=== PATIENT | female | born 1985 | race Caucasian/White ===

== ENCOUNTER 2019-12-20 17:17 | Emergency (ER) | payer OTHER ==
--- NOTE | 2019-12-20 18:20 | ER Document Report ---
ED Medical Screen (RME) - General Chief Complaint: Leg Swelling Stated Complaint: LEG SWELLING Time Seen by Provider: 12/20/19 18:07 Primary Care Provider: TELLO RADFORD MD [Primary Care Provider] - Follow up as needed Mode of Arrival: Ambulatory Information source: Patient Notes: 34-year-old female presents to ED with swelling to the left leg. There is a large bulge to the medial aspect of the left lower leg. She states she went to urgent care and they sent her to the ED for Doppler and an ultrasound. I have taken her to the ultrasound. We will get a Doppler before discharge her. She states she does not have any past medical history except for an ovarian cyst. When she went to get the ovarian cyst removed they ended up doing a salpingo- oophorectomy. Patient is alert oriented respirations regular nonlabored speaking in full sentences. I have greeted and performed a rapid initial assessment of this patient. A comprehensive ED assessment and evaluation of the patient, analysis of test results and completion of medical decision making process will be conducted by an additional ED providers. TRAVEL OUTSIDE OF THE [place] IN LAST 30 DAYS: No - HPI Onset: Other Onset/Duration: Persistent - 2 months Quality of pain: Achy - 81 walking, Other - Tight Severity: Mild Associated Symptoms: Leg swelling - bulge to the medial aspect of the lower leg, Other - Left leg pain with a Exacerbated by: Walking Relieved by: Denies Similar symptoms previously: Yes Recently seen / treated by doctor: Yes - Related Data Smoking: Non-smoker Frequency of alcohol use: None Drug Abuse: None Allergies/Adverse Reactions: No Known Allergies Allergy (Unverified 08/13/10 22:23) Past Medical History - General Information source: Patient - Social History Cigarette use (# per day): No Chew tobacco use (# tins/day): No Frequency of alcohol use: None Drug Abuse: None Lives with: Family Family history: Reviewed & Not Pertinent - Past Medical History Cardiac Medical History: Reports: None Pulmonary Medical History: Reports: None Neurological Medical History: Reports: None Endocrine Medical History: Reports: None Renal/ Medical History: Reports: None Malignancy Medical History: Reports: None GI Medical History: Reports: None Musculoskeltal Medical History: Reports None Skin Medical History: Reports None Psychiatric Medical History: Reports: None Traumatic Medical History: Reports: None Infectious Medical History: Reports: None Past Surgical History: Reports: Hx Gynecologic Surgery - filopian tube cyst/rem oval. - Immunizations Hx Diphtheria, Pertussis, Tetanus Vaccination: Yes Physical Exam - Vital signs Vitals: Temp Pulse Resp BP Pulse Ox 98.6 F 98 16 155/86 H 98 12/20/19 17:48 12/20/19 17:48 12/20/19 17:48 12/20/19 17:48 12/20/19 17:48 Course - Vital Signs Vital signs: Temp Pulse Resp BP Pulse Ox 98.6 F 98 16 155/86 H 98 12/20/19 17:48 12/20/19 17:48 12/20/19 17:48 12/20/19 17:48 12/20/19 17:48 - Laboratory Result Diagrams: 12/20/19 21:24 12/20/19 21:24 Laboratory results interpreted by me: 12/20/19 12/20/19 12/20/19 21:24 21:24 21:24 WBC 16.5 H MCV 77 L MCH 24.9 L RDW 15.9 H Absolute Neuts (auto) 11.8 H PT 17.3 H Sodium 136.3 L AST 41 H Doctor's Discharge - Discharge Referrals: TELLO RADFORD MD [Primary Care Provider] - Follow up as needed
--- NOTE | 2019-12-20 18:53 | RADIOLOGY REPORT (SQ) ---
EXAM DESCRIPTION: U/S EXTREMITY NONVASCULAR LTD IMAGES COMPLETED DATE/TIME: 12/20/2019 6:30 pm REASON FOR STUDY: left leg bulge medial aspect lower leg COMPARISON: None. TECHNIQUE: Dynamic and static grayscale images acquired of the localized site of clinical concern an d recorded on PACS. Additional selected color Doppler and spectral images recorded. SITE OF CONCERN: Left leg medial and posterior to the knee. LIMITATIONS: None. FINDINGS: Sonographic imaging of the area of concern shows no discernible mass or other finding. IMPRESSION: NO SOFT TISSUE MASS, FLUID COLLECTION, OR FOREIGN BODY. TECHNICAL DOCUMENTATION: JOB ID: [id number] 2010 [employer]- All Rights Reserved Reading location - IP/workstation name: [email or web address]
--- NOTE | 2019-12-20 19:35 | RADIOLOGY REPORT (SQ) ---
EXAM DESCRIPTION: VENOUS UNILATERAL LOWER IMAGES COMPLETED DATE/TIME: 12/20/2019 7:25 pm REASON FOR STUDY: pain and swelling left lower extremity COMPARISON: None. TECHNIQUE: Dynamic and static neves scale and color images acquired of the left leg venous system. Se lected spectral images acquired with additional compression and augmentation maneuvers. The contralat eral common femoral vein and saphenofemoral junction were also imaged. Images stored on PACS. LIMITATIONS: None. FINDINGS: COMMON FEMORAL: Normal phasicity, compression and augmentation. No visualized echogenic ma terial on neves scale. No defects on color images. FEMORAL: Normal compression and augmentation. No visualized echogenic material on neves scale. No defe cts on color images. POPLITEAL: Normal compression, augmentation. No visualized echogenic material on neves scale. No defec ts on color images. CALF VESSELS: Normal compression, augmentation. No visualized echogenic material on neves scale. No de fects on color images. GSV and SSV: Normal compression, augmentation. No visualized echogenic material on neves scale. No def ects on color images. ANY DEEP VENOUS INSUFFICIENCY: Not evaluated. ANY EVIDENCE OF POPLITEAL CYST: No. OTHER: No other significant finding. CONTRALATERAL COMMON FEMORAL VEIN AND SAPHENOFEMORAL JUNCTION: Normal phasicity, compression and augmentation. No visualized echogenic material on neves scale. No de fects on color images. IMPRESSION: NO EVIDENCE DVT OR SVT IN THE LEFT LEG. TECHNICAL DOCUMENTATION: JOB ID: [id number] 2010 [employer]- All Rights Reserved Reading location - IP/workstation name: [email or web address]
[2019-12-20 21:38] LABS: ABSOLUTE BASOPHILS # (AUTO) 0.1 10^3/uL (0.0-0.2); ABSOLUTE EOSINOPHILS # (AUTO) 0.1 10^3/uL (0.0-0.6); ABSOLUTE LYMPHOCYTES (AUTO) 3.5 10^3/uL (0.5-4.7); ABSOLUTE NEUT (AUTO) 11.8 10^3/uL (1.7-8.2); BASOPHILS % (AUTO) 0.4 % (0-2); EOSINOPHILS % (AUTO) 0.8 % (0-6); HEMATOCRIT 39.2 % (36.0-47.0); HEMOGLOBIN 12.7 g/dL (12.0-15.5); MEAN CORPUSCULAR HEMOGLOBIN 24.9 pg (27.0-33.4); MEAN CORPUSCULAR HGB CONC 32.5 g/dL (32.0-36.0); MEAN CORPUSCULAR VOLUME 77 fl (80-97); MONOCYTES % (AUTO) 6.2 % (3-13); RED BLOOD COUNT 5.11 10^6/uL (3.72-5.28); RED CELL DISTRIBUTION WIDTH 15.9 % (11.5-14.0); SEGMENTED NEUTROPHILS % (AUTO) 71.6 % (42-78); TOTAL CELLS COUNTED % (AUTO) 100 %; WHITE BLOOD COUNT 16.5 10^3/uL (4.0-10.5)
[2019-12-20 21:43] LABS: PROTHROMBIN TIME 17.3 SEC (11.4-15.4)
[2019-12-20 21:51] LABS: ALBUMIN 4.6 g/dL (3.5-5.0); ALKALINE PHOSPHATASE 70 U/L (38-126); ANION GAP 8 (5-19); ASPARTATE AMINO TRANSFERASE 41 U/L (14-36); BILIRUBIN,DIRECT 0.3 mg/dL (0.0-0.4); BLOOD UREA NITROGEN 13 mg/dL (7-20); CALCIUM 9.3 mg/dL (8.4-10.2); CARBON DIOXIDE 26 mmol/L (22-30); CHLORIDE 102 mmol/L (98-107); GLUCOSE 98 mg/dL (75-110); POTASSIUM 4.3 mmol/L (3.6-5.0)
[2019-12-20 22:00] LABS: PLATELET COUNT 303 10^3/uL (150-450)
--- NOTE | 2019-12-20 23:20 | RADIOLOGY REPORT (SQ) ---
EXAM DESCRIPTION: CT LOWER EXTREMITY WITH IV CONTRAST COMPLETED DATE/TME: 12/20/2019 21:09 CLINICAL HISTORY: 34 years, Female, swelling COMPARISON: None. TECHNIQUE: Contrast enhanced CT of the left lower extremity was acquired after the administration of 70 mL of Omnipaque 350 intravenous contrast. Coronal and sagittal reformations were created. Images stored on PACS. All CT scanners at this facility use dose modulation, iterative reconstruction, and/or weight based dosing when appropriate to reduce radiation dose to as low as reasonably achievable (ALARA). [facility]: Dose Right [facility]: CareDose [facility]: Dose Right [facility]: Teradose 4D [facility]: LiveOffice LIMITATIONS: None. FINDINGS: Assessment of the osseous structures reveals mild tricompartmental osteoarthrosis, designated primarily by marginal osteophyte formation. No acute fracture or dislocation is evident. There is a small effusion within the suprapatellar recess. Mild soft tissue swelling is noted about the prepatellar soft tissues extending into the lower leg. No underlying drainable fluid collections are identified. Likewise, the deep musculature of the thigh, knee, and lower leg do not demonstrate any suspicious anomaly. Visualized vascular structures appeared opacify with contrast normally. IMPRESSION: Mild prepatellar soft tissue swelling extending into the lower leg, nonspecific. No drainable fluid collection or evidence of acute fracture/dislocation. Mild tricompartmental osteoarthrosis. TECHNICAL DOCUMENTATION: Quality ID # [id number]: Final reports with documentation of one or more dose reduction techniques (e.g., Automated exposure control, adjustment of the mA and/or kV according to patient size, use of iterative reconstruction technique) copyright 2011 [employer]- All Rights Reserved
[2019-12-20 23:37] LABS: APPEARANCE,URINE SLIGHTLY-CLOUDY; BILIRUBIN,URINE NEGATIVE (NEGATIVE); COLOR,URINE YELLOW; GLUCOSE, URINE NEGATIVE (NEGATIVE); KETONES,URINE NEGATIVE (NEGATIVE); LEUKOCYTE ESTERASE,URINE SMALL (NEGATIVE); NITRITE,URINE NEGATIVE (NEGATIVE); PROTEIN,URINE NEGATIVE (NEGATIVE); URINE SPECIFIC GRAVITY 1.033; UROBILINOGEN,URINE NEGATIVE mg/dL (<2.0)
[2019-12-20] MEDS ORDERED: NITROFURANTOIN MONOHYD/M-CRYST 100 MG CAPSULE PO ONE (23:52)
--- NOTE | 2019-12-20 23:57 | ER Document Report ---
ED Extremity Problem, Lower - General Chief Complaint: Leg Pain Stated Complaint: LEG SWELLING Time Seen by Provider: 12/20/19 18:07 Primary Care Provider: TELLO RADFORD MD [Primary Care Provider] - Follow up as needed Mode of Arrival: Ambulatory Information source: Patient Notes: 34-year-old female with no previous medical problems presents to the emergency room complaining of left foot and left lower leg swelling for the past 2 months. She denies any trauma or injury. Denies pain. Denies any recent travel. No use of control. Has not been seen for her symptoms prior to today. 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 No previous history of DVTs or PEs. No hemoptysis. No recent surgery. TRAVEL OUTSIDE OF THE [place] IN LAST 30 DAYS: No - Related Data Allergies/Adverse Reactions: No Known Allergies Allergy (Unverified 08/13/10 22:23) Past Medical History - General Information source: Patient - Social History Smoking Status: Never Smoker Cigarette use (# per day): No Chew tobacco use (# tins/day): No Frequency of alcohol use: None Drug Abuse: None Lives with: Family Family History: Reviewed & Not Pertinent - Past Medical History Cardiac Medical History: Reports: None Denies: Hx Coronary Artery Disease, Hx Heart Attack, Hx Hypertension Pulmonary Medical History: Reports: None Denies: Hx Asthma, Hx Bronchitis, Hx COPD, Hx Pneumonia Neurological Medical History: Reports: None. Denies: Hx Cerebrovascular Accident, Hx Seizures Endocrine Medical History: Reports: None Renal/ Medical History: Reports: None Malignancy Medical History: Reports: None GI Medical History: Reports: None Musculoskeletal Medical History: Reports None, Denies Hx Arthritis Skin Medical History: Reports None Psychiatric Medical History: Reports: None Traumatic Medical History: Reports: None Infectious Medical History: Reports: None Past Surgical History: Reports: Hx Gynecologic Surgery - filopian tube cyst/removal.. Denies: Hx Pacemaker - Immunizations Hx Diphtheria, Pertussis, Tetanus Vaccination: Yes Review of Systems - Review of Systems Constitutional: No symptoms reported EENT: No symptoms reported Cardiovascular: Edema Respiratory: No symptoms reported Gastrointestinal: No symptoms reported Musculoskeletal: Leg swelling Skin: Lumps Hematologic/Lymphatic: No symptoms reported Neurological/Psychological: No symptoms reported -: Yes All other systems reviewed and negative Physical Exam - Vital signs Vitals: Temp Pulse Resp BP Pulse Ox 98.6 F 98 16 155/86 H 98 12/20/19 17:48 12/20/19 17:48 12/20/19 17:48 12/20/19 17:48 12/20/19 17:48 - General General appearance: Appears well, Alert In distress: Mild - HEENT Head: Normocephalic, Atraumatic Eyes: Normal Pupils: PERRL - Respiratory Respiratory status: No respiratory distress Chest status: Nontender Breath sounds: Normal Chest palpation: Normal - Cardiovascular Rhythm: Regular Heart sounds: Normal auscultation Murmur: No - Extremities General upper extremity: Normal inspection, Nontender, Normal color, Normal ROM, Normal temperature General lower extremity: Nontender, Edema - There is minimal swelling noted to the left foot. There is a 4 cm area to the left medial aspect of the left calf that is swollen but nontender to palpation. No erythema. Not warm to touch., Normal color, Normal ROM, Normal temperature, Normal weight bearing. No: Meena's sign Calf: Normal, Nontender. No: Unable to bear weight Foot: Nontender, Edema - Trace pedal - Neurological Neuro grossly intact: Yes Cognition: Normal Orientation: AAOx4 Priyanka Coma Scale Eye Opening: Spontaneous Priyanka Coma Scale Verbal: Oriented Priyanka Coma Scale Motor: Obeys Commands [place] Coma Scale Total: 15 Speech: Normal Motor strength normal: LUE, RUE, LLE, RLE Sensory: Normal Notes: Positive left pedal pulse. Capillary refill less than 3 seconds. Negative Homans sign. Neurovascular intact. Ambulatory with a steady gait. - Skin Skin Temperature: Warm Skin Moisture: Dry Skin Color: Normal Location of irregularity: Extremities Irregularity with: Swelling. negative: Tenderness, Warmth Course - Re-evaluation Re-evalutation: 12/20/19 23:52 Patient is resting comfortably she is pain-free. She is afebrile. She is nontoxic-appearing, patient with mild leukocytosis positive for leukocytes on the urine. Asymptomatic. No other source for the leukocytosis. All test results were reviewed with the patient at length. Will start patient on Macrobid for the leukocytes in the urine and mild leukocytosis. Patient aware of left knee effusion along with left osteo arthrosis of the left lower extrem ity. Patient was counseled to rest, elevate her legs frequently throughout the day. Outpatient follow-up with her primary care physician for further evaluation. Patient was given strict return to the emergency room guidelines. Return for any new or worsening symptoms. All questions were answered. Patient verbalized understanding and agrees with plan of care. - Vital Signs Vital signs: Temp Pulse Resp BP Pulse Ox 98.6 F 100 14 153/75 H 100 12/20/19 23:09 12/20/19 23:09 12/20/19 23:09 12/20/19 23:09 12/20/19 23:09 - Laboratory Result Diagrams: 12/20/19 21:24 12/20/19 21:24 Laboratory results interpreted by me: 12/20/19 12/20/19 12/20/19 21:24 21:24 21:24 WBC 16.5 H MCV 77 L MCH 24.9 L RDW 15.9 H Absolute Neuts (auto) 11.8 H PT 17.3 H Sodium 136.3 L AST 41 H Ur Leukocyte Esterase Urine Ascorbic Acid 12/20/19 22:56 WBC MCV MCH RDW Absolute Neuts (auto) PT Sodium AST Ur Leukocyte Esterase SMALL H Urine Ascorbic Acid 20 H - Diagnostic Test Radiology reviewed: Reports reviewed Discharge - Discharge Clinical Impression: Localized swelling of left lower extremity, Suprapatellar effusion of knee, Primary localized osteoarthrosis of left lower leg UTI (urinary tract infection) Qualifiers: Urinary tract infection type: site unspecified Hematuria presence: without h ematuria Qualified Code(s): N39.0 - Urinary tract infection, site not specified Condition: Stable Disposition: HOME, SELF-CARE Instructions: Edema, Peripheral ([facility]), Knee Effusion ([facility]), Osteoarthritis ([facility]), Urinary Tract Infection ([facility]) Additional Instructions: Rest and elevate your legs frequently throughout the day. Antibiotics as prescribed. Outpatient follow-up with your primary care physician for further evaluation. Return to the emergency room for any new or worsening symptoms. Prescriptions: Nitrofurantoin Monohyd/M-Cryst [Macrobid 100 mg Capsule] 100 mg PO BID #[id number] cap Referrals: TELLO RADFORD MD [Primary Care Provider] - Follow up as needed
[2019-12-21 00:10] VITALS: BP 134/79
== END 2019-12-21 00:10 | disposition home or self-care (01) ==
LOC: ER 17:17
DX: M79.89 Other specified soft tissue disorders (principal); R60.0 Localized edema; M17.12 Unilateral primary osteoarthritis, left knee; M25.462 Effusion, left knee; N39.0 Urinary tract infection, site not specified
CPT/HCPCS: 99285; 36415; 84703; 85025; 85610; 80053; 81001; 93971; 76882; 73701; J8499